=== PATIENT | female | born 1975 | race Caucasian/White ===

== ENCOUNTER 2017-01-08 16:06 | Emergency (ER) | payer MEDICAID ==
[~2017-01-08] VITALS: Ht 167.6 cm; Wt 67.5 kg
[2017-01-08 18:29] LABS: BLOOD UREA NITROGEN 7 mg/dL (7-18)
[2017-01-08 18:29] LABS: HEMOGLOBIN 12.7 g/dL (11.7-16.4)
[2017-01-08] MEDS ORDERED: BACITRACIN ZINC OINT 500U/GM, 0.9 GM ONE (21:27)
[2017-01-08 22:44] VITALS: BP 128/86
== END 2017-01-08 22:51 | disposition home or self-care (01) ==
LOC: ED 18:55
DX: L03.211 Cellulitis of face (principal); K13.0 Diseases of lips; L03.312 Cellulitis of back [any part except buttock and flank]; L03.114 Cellulitis of left upper limb; F15.10 Other stimulant abuse, uncomplicated; Z59.0 Homelessness
CPT/HCPCS: 36415; 80048; 82040; 85025; 99284